=== PATIENT | male | born 1955 | race African-American/Black ===

== ENCOUNTER 2017-04-17 18:29 | Emergency (ER) | payer MEDICAID ==
[~2017-04-17] VITALS: Ht 175.3 cm; Wt 93.0 kg
[2017-04-17] MEDS ORDERED: SILVER SULFADIAZINE 1% CREAM 25GM TOP ONE (22:45)
[2017-04-17] MEDS ORDERED: TETANUS, DIPHTHERIA, PERTUSSIS VAC/PF 0.5ML (>7YR OLD) IM ONE (22:45)
[2017-04-17 23:41] VITALS: BP 140/75
== END 2017-04-17 23:43 | disposition home or self-care (01) ==
LOC: ER 22:04
DX: T24.202A Burn of second degree of unspecified site of left lower limb, except ankle and foot, initial encounter (principal); T24.201A Burn of second degree of unspecified site of right lower limb, except ankle and foot, initial encounter; X11.0XXA Contact with hot water in bath or tub, initial encounter; Y93.E1 Activity, personal bathing and showering; Y92.091 Bathroom in other non-institutional residence as the place of occurrence of the external cause; R03.0 Elevated blood-pressure reading, without diagnosis of hypertension; E11.42 Type 2 diabetes mellitus with diabetic polyneuropathy; Z79.84 Long term (current) use of oral hypoglycemic drugs; Z23 Encounter for immunization; Z98.890 Other specified postprocedural states
CPT/HCPCS: 16020; 90471; 90715; 99284

== ENCOUNTER 2017-07-29 09:50 | Emergency (ER) | payer MEDICAID ==
[~2017-07-29] VITALS: Ht 175.3 cm; Wt 92.0 kg
[2017-07-29] MEDS ORDERED: SODIUM CHLORIDE 0.9% 1,000 ML IV ONE (10:22)
[2017-07-29] MEDS ORDERED: KETOROLAC 30MG/ML VIAL IV STA (10:22)
[2017-07-29 10:52] LABS: BASOPHILS % 0.8 % (0.0-2.0); EOSINOPHILS % 2.4 % (0.0-5.0); HEMATOCRIT. 32.5 % (42.0-52.0); HEMOGLOBIN. 11.1 g/dL (14.0-18.0); LYMPHOCYTES % 25.8 % (20.0-50.0); MEAN CORPUSCULAR HEMOGLOBIN 28.9 pg (28.0-32.0); MEAN CORPUSCULAR VOLUME 84.8 fL (80.0-94.0); MONOCYTES % 8.3 % (2.0-8.0); NEUTROPHILS % 62.7 % (40.0-76.0); PLATELET 269 x1000/uL (130-400); RED BLOOD CELL COUNT 3.83 mill/uL (4.7-6.1); RED CELL DISTRIBUTION WIDTH 14.1 % (11.6-14.6)
[2017-07-29 11:10] LABS: CARBON DIOXIDE 27 mEq/L (21-32); CHLORIDE 101 mEq/L (98-107); TROPONIN I < 0.02 ng/mL (0.00-0.04)
[2017-07-29 11:26] LABS: PROTHROMBIN TIME 10.2 sec (9.4-11.6)
[2017-07-29 12:26] VITALS: BP 154/86
== END 2017-07-29 13:18 | disposition home or self-care (01) ==
LOC: ER 10:16
DX: E11.65 Type 2 diabetes mellitus with hyperglycemia (principal); N28.9 Disorder of kidney and ureter, unspecified; R07.9 Chest pain, unspecified; R05 Cough; R06.09 Other forms of dyspnea
CPT/HCPCS: 36415; 71010; 80053; 83880; 84484; 85025; 85610; 87804; 93005; 96361; 96374; 99285; J1885; J7030; Z7610

== ENCOUNTER 2018-08-04 18:14 | Inpatient (IN) | payer MEDICAID ==
[~2018-08-04] VITALS: Ht 177.8 cm; Wt 100.8 kg
[2018-08-04] MEDS ORDERED: ONDANSETRON HCL 4MG/2ML INJ IV STA (22:17)
[2018-08-04] MEDS ORDERED: KETOROLAC 30MG/ML VIAL IV STA (22:17)
[2018-08-04] MEDS ORDERED: SODIUM CHLORIDE 0.9% 1,000 ML IV ONE (22:17)
[2018-08-04] MEDS ORDERED: PIPERACILLIN/TAZ 3.375G PREMIX 50 ML IV ONE (22:30)
[2018-08-04] MEDS ORDERED: VANCOMYCIN 1 G PREMIX 200 ML IV ONE (22:30)
[2018-08-04] MEDS ORDERED: MORPHINE SULFATE 10 MG/ML CPJ IV ONE (22:30)
[2018-08-04 23:59] LABS: BASOPHILS % 0.7 % (0.0-2.0); CHLORIDE 99 mEq/L (98-107); EOSINOPHILS % 2.5 % (0.0-5.0); HEMATOCRIT. 32.3 % (42.0-52.0); LYMPHOCYTES % 27.2 % (20.0-50.0); MEAN CORPUSCULAR VOLUME 85.2 fL (80.0-94.0); MEAN PLATELET VOLUME 9.8 fl (7.4-10.4); MONOCYTES % 7.2 % (2.0-8.0); NEUTROPHILS % 62.4 % (40.0-76.0); PLATELET 304 x1000/uL (130-400); RED CELL DISTRIBUTION WIDTH 13.3 % (11.6-14.6)
[2018-08-05 00:05] LABS: ETHANOL BLOOD < 10 mg/dL
[2018-08-05] MEDS ORDERED: SITA100T11 PO (04:51)
[2018-08-05] MEDS ORDERED: GLIP10TA10 PO (04:54)
[2018-08-05] MEDS ORDERED: HUM100IN SQ (04:56)
[2018-08-05] MEDS ORDERED: GABA-531 PO (05:37)
[2018-08-05] MEDS ORDERED: SIMV20TA6 PO (05:37)
[2018-08-05] MEDS ORDERED: LISI-186 PO (05:37)
[2018-08-05] MEDS ORDERED: AMLO-337 PO (05:37)
[2018-08-05] MEDS ORDERED: TAMS0.4C31 PO (05:37)
[2018-08-05] MEDS ORDERED: ASPI-1159 MT (05:37)
[2018-08-05 06:00] VITALS: BP 124/55
[2018-08-05] MEDS ORDERED: DEXTROSE 50% WATER 50ML SYRINGE IV PRN (07:00)
[2018-08-05] MEDS: BLOOD SUGAR DIAGNOSTIC STRIP TEST SCH ×4 (07:20→21:18)
[2018-08-05] MEDS ORDERED: ZOSYN XX SCH (08:45)
[2018-08-05] MEDS ORDERED: ENOXAPARIN 40MG/0.4ML SYR SUBCUT SCH (09:00)
[2018-08-05] MEDS: ENOXAPARIN 30MG/0.3ML SYR SUBCUT SCH ×2 (10:01→21:20)
[2018-08-05] MEDS: INSULIN LISPRO 100 UNITS/ML SUBCUT SCH ×4 (10:03→22:08)
[2018-08-05] MEDS ORDERED: VANCOMYCIN 1250MG in DEXTROSE 5% WATER 250ML IV SCH (12:00)
[2018-08-05] MEDS: PIPERACILLIN/TAZ 2.25G PREMIX 50 ML IV SCH ×3 (13:43→23:24)
[2018-08-05] MEDS: GABAPENTIN 300MG CAPSULE PO SCH ×2 (13:48→21:18)
[2018-08-05 20:00] VITALS: BP 118/72
[2018-08-05] MEDS: HYDROCODONE/ACETAMINOPHEN 5/325MG TABLET PO PRN (21:56)
[2018-08-06] VITALS: BP 113/64
[2018-08-06 04:00] VITALS: BP 118/72
[2018-08-06] MEDS: GABAPENTIN 300MG CAPSULE PO SCH ×3 (05:32→22:15)
[2018-08-06] MEDS: PIPERACILLIN/TAZ 2.25G PREMIX 50 ML IV SCH ×3 (05:32→18:08)
[2018-08-06 06:10] LABS: BASOPHILS % 0.6 % (0.0-2.0); EOSINOPHILS % 3.9 % (0.0-5.0); HEMATOCRIT. 32.5 % (42.0-52.0); HEMOGLOBIN. 11.1 g/dL (14.0-18.0); LYMPHOCYTES % 32.1 % (20.0-50.0); MEAN CORPUSCULAR HEMOGLOBIN 29.2 pg (28.0-32.0); MEAN CORPUSCULAR VOLUME 85.5 fL (80.0-94.0); MEAN PLATELET VOLUME 9.8 fl (7.4-10.4); MONOCYTES % 6.9 % (2.0-8.0); NEUTROPHILS % 56.5 % (40.0-76.0); PLATELET 290 x1000/uL (130-400); RED CELL DISTRIBUTION WIDTH 13.7 % (11.6-14.6)
[2018-08-06] MEDS: BLOOD SUGAR DIAGNOSTIC STRIP TEST SCH ×4 (06:45→21:03)
[2018-08-06 08:00] VITALS: BP 145/77
[2018-08-06] MEDS: TAMSULOSIN HCL 0.4MG SR CAPSULE PO SCH (09:46)
[2018-08-06] MEDS: ENOXAPARIN 30MG/0.3ML SYR SUBCUT SCH ×2 (09:46→20:45)
[2018-08-06] MEDS: INSULIN LISPRO 100 UNITS/ML SUBCUT SCH ×4 (09:54→21:01)
[2018-08-06] MEDS ORDERED: LIDOCAINE HCL 1% 20ML VIAL (Pyxis) INJ ONE (11:09)
[2018-08-06 12:00] VITALS: BP 143/76
[2018-08-06] MEDS: VANCOMYCIN 1250MG in DEXTROSE 5% WATER 250ML IV SCH (13:37)
[2018-08-06 16:00] VITALS: BP 138/86
[2018-08-06] MEDS: LINAGLIPTIN 5MG TABLET PO SCH (16:54)
[2018-08-06] MEDS: DOCUSATE SODIUM 100MG CAPSULE PO SCH (17:00)
[2018-08-06 20:00] VITALS: BP 114/86
[2018-08-06] MEDS ORDERED: INSULIN GLARGINE UD 100 UNITS/ML SYR SUBCUT SCH (22:00)
[2018-08-06 22:18] LABS: CLARITY URINE CLEAR (CLEAR); COLOR URINE YELLOW (YELLOW); KETONES URINE NEGATIVE (NEGATIVE); LEUKOCYTE ESTERASE URINE NEGATIVE (NEGATIVE); NITRITE URINE NEGATIVE (NEGATIVE); OCCULT BLOOD URINE NEGATIVE (NEGATIVE); PH URINE 5.5 (4.5-8.0); PROTEIN URINE NEGATIVE (NEGATIVE); SPECIFIC GRAVITY URINE 1.017 (1.005-1.030); UROBILINOGEN URINE 0.2 E.U./dL (0.2-1.0)
[2018-08-07] VITALS: BP 147/79
[2018-08-07] MEDS: PIPERACILLIN/TAZ 2.25G PREMIX 50 ML IV SCH ×5 (00:32→23:24)
[2018-08-07 04:00] VITALS: BP 128/77
[2018-08-07] MEDS: GABAPENTIN 300MG CAPSULE PO SCH ×3 (06:17→21:01)
[2018-08-07] MEDS: BLOOD SUGAR DIAGNOSTIC STRIP TEST SCH ×4 (06:24→20:28)
[2018-08-07 07:56] LABS: EOSINOPHILS % 3.1 % (0.0-5.0); HEMATOCRIT. 32.7 % (42.0-52.0); LYMPHOCYTES % 25.6 % (20.0-50.0); MEAN CORPUSCULAR HEMOGLOBIN 28.8 pg (28.0-32.0); MEAN CORPUSCULAR VOLUME 85.4 fL (80.0-94.0); MEAN PLATELET VOLUME 9.8 fl (7.4-10.4); MONOCYTES % 6.8 % (2.0-8.0); NEUTROPHILS % 63.5 % (40.0-76.0); PLATELET 275 x1000/uL (130-400); RED BLOOD CELL COUNT 3.83 mill/uL (4.7-6.1); RED CELL DISTRIBUTION WIDTH 13.6 % (11.6-14.6)
[2018-08-07 08:00] VITALS: BP 122/73
[2018-08-07 08:04] LABS: CHLORIDE 105 mEq/L (98-107)
[2018-08-07 08:12] LABS: PHOSPHORUS 4.1 mg/dL (2.5-4.9)
[2018-08-07] MEDS: TAMSULOSIN HCL 0.4MG SR CAPSULE PO SCH (08:49)
[2018-08-07] MEDS: LINAGLIPTIN 5MG TABLET PO SCH (08:49)
[2018-08-07] MEDS: ENOXAPARIN 30MG/0.3ML SYR SUBCUT SCH ×2 (08:50→20:27)
[2018-08-07] MEDS: INSULIN LISPRO 100 UNITS/ML SUBCUT SCH ×4 (08:59→21:06)
[2018-08-07] MEDS: DOCUSATE SODIUM 100MG CAPSULE PO SCH ×2 (09:00→16:42)
[2018-08-07] MEDS ORDERED: INSULIN GLARGINE UD 100 UNITS/ML SYR SUBCUT SCH (10:00)
[2018-08-07 12:00] VITALS: BP_SYST 131; BP_SYST 136; BP_DIAS 71; BP_DIAS 72
[2018-08-07] MEDS: GLIPIZIDE 5MG XL TABLET PO SCH (13:47)
[2018-08-07] MEDS: VANCOMYCIN 1250MG in DEXTROSE 5% WATER 250ML IV SCH (13:47)
[2018-08-07] MEDS ORDERED: INSULIN GLARGINE UD 100 UNITS/ML SYR SUBCUT NR (14:00)
[2018-08-07 16:00] VITALS: BP 131/71
[2018-08-07 20:02] VITALS: BP 120/74
[2018-08-08 00:49] VITALS: BP 126/69
[2018-08-08 04:00] VITALS: BP 137/84
[2018-08-08] MEDS: GABAPENTIN 300MG CAPSULE PO SCH ×3 (05:49→21:36)
[2018-08-08] MEDS: PIPERACILLIN/TAZ 2.25G PREMIX 50 ML IV SCH ×4 (05:49→22:26)
[2018-08-08] MEDS: BLOOD SUGAR DIAGNOSTIC STRIP TEST SCH ×4 (05:49→21:00)
[2018-08-08 06:34] LABS: BASOPHILS % 1.1 % (0.0-2.0); EOSINOPHILS % 4.1 % (0.0-5.0); HEMATOCRIT. 33.6 % (42.0-52.0); HEMOGLOBIN. 11.5 g/dL (14.0-18.0); LYMPHOCYTES % 23.5 % (20.0-50.0); MEAN CORPUSCULAR HEMOGLOBIN 29.3 pg (28.0-32.0); MEAN CORPUSCULAR VOLUME 85.7 fL (80.0-94.0); MEAN PLATELET VOLUME 9.7 fl (7.4-10.4); MONOCYTES % 9.2 % (2.0-8.0); NEUTROPHILS % 62.1 % (40.0-76.0); PLATELET 284 x1000/uL (130-400); RED BLOOD CELL COUNT 3.93 mill/uL (4.7-6.1); RED CELL DISTRIBUTION WIDTH 13.6 % (11.6-14.6)
[2018-08-08 08:00] VITALS: BP 137/84
[2018-08-08] MEDS: GLIPIZIDE 5MG XL TABLET PO SCH (08:40)
[2018-08-08] MEDS: ENOXAPARIN 30MG/0.3ML SYR SUBCUT SCH ×2 (08:40→21:36)
[2018-08-08] MEDS: HYDROCODONE/ACETAMINOPHEN 5/325MG TABLET PO PRN ×2 (08:41→16:41)
[2018-08-08] MEDS: LINAGLIPTIN 5MG TABLET PO SCH (08:41)
[2018-08-08] MEDS: TAMSULOSIN HCL 0.4MG SR CAPSULE PO SCH (08:41)
[2018-08-08] MEDS: INSULIN LISPRO 100 UNITS/ML SUBCUT SCH ×4 (08:53→22:23)
[2018-08-08] MEDS: DOCUSATE SODIUM 100MG CAPSULE PO SCH ×2 (08:54→17:00)
[2018-08-08] MEDS ORDERED: INSULIN GLARGINE UD 100 UNITS/ML SYR SUBCUT SCH ×2 (10:00→15:00)
[2018-08-08 12:00] VITALS: BP 125/74
[2018-08-08] MEDS ORDERED: VANCOMYCIN 1,500 MG in DEXT 5% WATER 250 ML IV SCH (14:00)
[2018-08-08] MEDS ORDERED: GLIPIZIDE 5MG XL TABLET PO SCH (14:30)
[2018-08-08 16:00] VITALS: BP 143/82
[2018-08-08 20:00] VITALS: BP 103/69
[2018-08-09] VITALS: BP 130/71
[2018-08-09 04:00] VITALS: BP 136/76
[2018-08-09] MEDS: PIPERACILLIN/TAZ 2.25G PREMIX 50 ML IV SCH (06:43)
[2018-08-09] MEDS: GABAPENTIN 300MG CAPSULE PO SCH ×2 (06:43→13:48)
[2018-08-09] MEDS: BLOOD SUGAR DIAGNOSTIC STRIP TEST SCH ×3 (07:20→17:19)
[2018-08-09 07:34] LABS: BASOPHILS % 0.8 % (0.0-2.0); EOSINOPHILS % 4.1 % (0.0-5.0); HEMATOCRIT. 33.8 % (42.0-52.0); HEMOGLOBIN. 11.2 g/dL (14.0-18.0); LYMPHOCYTES % 27.5 % (20.0-50.0); MEAN CORPUSCULAR HEMOGLOBIN 28.6 pg (28.0-32.0); MEAN CORPUSCULAR VOLUME 86.1 fL (80.0-94.0); MEAN PLATELET VOLUME 9.5 fl (7.4-10.4); MONOCYTES % 7.6 % (2.0-8.0); PLATELET 294 x1000/uL (130-400); RED BLOOD CELL COUNT 3.93 mill/uL (4.7-6.1); RED CELL DISTRIBUTION WIDTH 13.6 % (11.6-14.6)
[2018-08-09] MEDS ORDERED: GLIPIZIDE 5MG XL TABLET PO SCH (07:50)
[2018-08-09 08:00] VITALS: BP 143/77
[2018-08-09] MEDS: DOCUSATE SODIUM 100MG CAPSULE PO SCH ×2 (08:47→17:00)
[2018-08-09] MEDS: ENOXAPARIN 30MG/0.3ML SYR SUBCUT SCH (08:48)
[2018-08-09] MEDS: TAMSULOSIN HCL 0.4MG SR CAPSULE PO SCH (08:50)
[2018-08-09] MEDS: LINAGLIPTIN 5MG TABLET PO SCH (08:51)
[2018-08-09] MEDS: INSULIN LISPRO 100 UNITS/ML SUBCUT SCH ×3 (09:11→17:19)
[2018-08-09 09:43] LABS: PHOSPHORUS 3.5 mg/dL (2.5-4.9)
[2018-08-09] MEDS ORDERED: INSULIN GLARGINE UD 100 UNITS/ML SYR SUBCUT SCH ×2 (10:00)
[2018-08-09] MEDS ORDERED: CEFTRIAXONE 2 G PREMIX 50 ML IV SCH (11:30)
[2018-08-09 12:00] VITALS: BP 146/78
[2018-08-09] MEDS ORDERED: CEFTRIAXONE 2 G in DEXTROSE 5% WATER 50 ML IV SCH (13:00)
[2018-08-09] MEDS ORDERED: AMOXICILLIN 500 MG CAPSULE PO SCH (14:00)
[2018-08-09 15:22] VITALS: BP 146/78
[2018-08-09 16:00] VITALS: BP 126/93
== END 2018-08-09 17:50 | disposition home health service (06) | DRG 320 ==
LOC: ER 18:14 → 6EST 08-05 01:07 → EDBEDREQDT 08-05 01:20 → EDBEDREQTM 08-05 01:20 → EDBEDREQ 08-05 01:20 → EDBEDREQSVC 08-05 01:22 → ENRESERV 08-05 03:43
PROVIDERS: ADMIT Internal Medicine; ATTEND Internal Medicine
PROC: 02HV33Z Insertion of Infusion Device into Superior Vena Cava, Percutaneous Approach (ICD-10-PCS; 2018-08-06)
PROC: B548ZZA Ultrasonography of Superior Vena Cava, Guidance (ICD-10-PCS; 2018-08-06)
PROC: B5181ZA Fluoroscopy of Superior Vena Cava using Low Osmolar Contrast, Guidance (ICD-10-PCS; 2018-08-06)
PROC: 0QBQ0ZZ Excision of Right Toe Phalanx, Open Approach (ICD-10-PCS; principal; 2018-08-08)
PROC: 0QBQ0ZX Excision of Right Toe Phalanx, Open Approach, Diagnostic (ICD-10-PCS; 2018-08-08)
DX: E11.69 Type 2 diabetes mellitus with other specified complication (principal); M86.8X7 Other osteomyelitis, ankle and foot; E11.21 Type 2 diabetes mellitus with diabetic nephropathy; E11.621 Type 2 diabetes mellitus with foot ulcer; N17.9 Acute kidney failure, unspecified; E11.42 Type 2 diabetes mellitus with diabetic polyneuropathy; N18.3 Chronic kidney disease, stage 3 (moderate); E11.319 Type 2 diabetes mellitus with unspecified diabetic retinopathy without macular edema; E11.51 Type 2 diabetes mellitus with diabetic peripheral angiopathy without gangrene; E87.5 Hyperkalemia; E11.622 Type 2 diabetes mellitus with other skin ulcer; L97.519 Non-pressure chronic ulcer of other part of right foot with unspecified severity; E11.22 Type 2 diabetes mellitus with diabetic chronic kidney disease; E66.9 Obesity, unspecified; D64.9 Anemia, unspecified; I12.9 Hypertensive chronic kidney disease with stage 1 through stage 4 chronic kidney disease, or unspecified chronic kidney disease; E11.628 Type 2 diabetes mellitus with other skin complications; E11.610 Type 2 diabetes mellitus with diabetic neuropathic arthropathy; N40.0 Benign prostatic hyperplasia without lower urinary tract symptoms; Z79.4 Long term (current) use of insulin; Z79.82 Long term (current) use of aspirin; Z68.31 Body mass index [BMI] 31.0-31.9, adult; Z80.1 Family history of malignant neoplasm of trachea, bronchus and lung; Z80.3 Family history of malignant neoplasm of breast; Z82.49 Family history of ischemic heart disease and other diseases of the circulatory system; Z83.3 Family history of diabetes mellitus; Z91.19 Patient's noncompliance with other medical treatment and regimen; Z79.899 Other long term (current) drug therapy
CPT/HCPCS: 36415; 36569; 71045; 73630; 73721; 76770; 76937; 77001; 80048; 80202; 82962; 83605; 83735; 84100; 84145; 84484; 87070; 87077; 87186; 93005; 93923; 93970; 96361; 96365; 96368; 96375; 99285; C1725; C1769; G0482; J0696; J1650; J1815; J1885; J2270; J2405; J2543; J3370; J3490; J7030; J7040; J7060

== ENCOUNTER 2018-10-24 01:51 | Emergency (ER) | payer MEDICAID ==
[~2018-10-24] VITALS: Ht 175.3 cm; Wt 98.8 kg
[~2018-10-24 01:51] MED LIST: AMLO-337 PO; ASPI-1159 MT; GABA-531 PO; GLIP10TA10 PO; HUM100IN SQ; SIMV20TA6 PO; SITA100T11 PO; TAMS0.4C31 PO
[2018-10-24] MEDS ORDERED: IBUPROFEN 800MG TABLET PO ONE (03:30)
[2018-10-24 05:10] VITALS: BP 115/83
== END 2018-10-24 05:14 | disposition home or self-care (01) ==
LOC: ER 02:43
DX: S43.492A Other sprain of left shoulder joint, initial encounter (principal); E11.9 Type 2 diabetes mellitus without complications; W18.39XA Other fall on same level, initial encounter; Y93.89 Activity, other specified; Y92.89 Other specified places as the place of occurrence of the external cause; Y99.8 Other external cause status; Z98.890 Other specified postprocedural states; Z79.82 Long term (current) use of aspirin; Z79.899 Other long term (current) drug therapy
CPT/HCPCS: 73030; 82962; 99283

== ENCOUNTER 2021-08-15 04:50 | Emergency (ER) | payer BC, OTHER ==
[~2021-08-15] VITALS: Ht 175.3 cm; Wt 96.7 kg
[~2021-08-15 04:50] MED LIST changes: -ASPI-1159 MT; +ASPI-1497 MT; -GABA-531 PO; +GABA-532 PO; +SIMV-43 PO; -SIMV20TA6 PO
[2021-08-15 05:05] VITALS: BP 108/72
[2021-08-15] MEDS ORDERED: OMEPRAZOLE 20MG CAPSULE EXTENDED RELEASE PO ONE (05:45)
[2021-08-15 09:43] LABS: CHLORIDE 104 mEq/L (98-107)
[2021-08-15 09:45] LABS: BASOPHILS % 0.3 % (0.0-2.0); EOSINOPHILS % 0.6 % (0.0-5.0); HEMATOCRIT. 35.6 % (42.0-52.0); HEMOGLOBIN. 12.3 g/dL (14.0-18.0); LYMPHOCYTES % 12.8 % (20.0-50.0); MEAN CORPUSCULAR VOLUME 86.5 fL (80.0-94.0); MEAN PLATELET VOLUME 9.1 fl (7.4-10.4); NEUTROPHILS % 78.3 % (40.0-76.0); PLATELET 186 x1000/uL (130-400); RED BLOOD CELL COUNT 4.11 mill/uL (4.7-6.1); RED CELL DISTRIBUTION WIDTH 14.4 % (11.6-14.6)
[2021-08-15 09:48] LABS: INR 0.9; PROTHROMBIN TIME 10.1 sec (9.6-11.0)
[2021-08-15] MEDS ORDERED: OMEP40CA20 MT (10:28)
== END 2021-08-15 10:42 | disposition home or self-care (01) ==
LOC: ER 04:50
DX: R10.13 Epigastric pain (principal); E78.00 Pure hypercholesterolemia, unspecified; I10 Essential (primary) hypertension; E11.9 Type 2 diabetes mellitus without complications; D64.9 Anemia, unspecified; Z98.890 Other specified postprocedural states; Z79.4 Long term (current) use of insulin
CPT/HCPCS: 36415; 71045; 80053; 85018; 85025; 99284